=== PATIENT | male | born 1945 | race African-American/Black ===

== ENCOUNTER 2020-01-16 02:16 | Emergency (ER) | payer MEDICARE, MEDICAID, SELFPAY ==
--- NOTE | ~2020-01-16 | XR_ITS ---
EXAMINATION: XR G tube replacement w image DATE: 01/16/2020 03:13 INDICATION: G-tube placement TECHNIQUE: Portable AP supine view of the abdomen and pelvis was obtained following injection of 20 m L of Omnipaque 350 into the patient's existing percutaneous gastrostomy tube. COMPARISON: None. FINDINGS: Small amount of injected contrast in the stomach which outlines the inflated bulb of the percutaneous gastrostomy tube. Contrast extends into the normal caliber duodenum. No dilated gas-filled bowel to suggest obstruction. Scattered atherosclerotic calcifications along the aorta and bilateral renal and iliac arteries. A few small calcified nodules at the left lower lung zone consistent with old granul omatous disease. 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 IMPRESSION: 1. Cutaneous gastrostomy tube with inflated bulb in the stomach. Reviewed, dictated and finalized at location A.
[2020-01-16 02:18] VITALS: BP 95/59; PULSE 87; RESP 22; TEMP 36.3; O2SAT 100
--- NOTE | 2020-01-16 02:41 | ED.GENADULT ---
HPI - General Adult General Chief complaint: Unspecified Stated complaint: G TUBE PROBLEM Time Seen by Provider: 01/16/20 02:17 History of Present Illness HPI narrative: Patient is a 74-year-old male who presents the ER with having his G-tube out. Patient has history of stroke and requires feeding by NG tube. Unable to give any additional history due to previous CVA with aphasia. No tenderness to G-tube site. Related Data Allergies Allergy/AdvReac Type Severity Reaction Status Date / Time Penicillins Allergy Unknown Verified 09/28/17 07:27 Review of Systems Review of Systems: ROS unobtainable: Yes unobtainable due to medical condition [facility] Past Medical History Medical History (Updated 01/16/20 @ 03:00 by Leonid Pena MD) Alzheimers disease Amputated great toe of left foot Dysphagia Expressive aphasia GERD (gastroesophageal reflux disease) Hyperlipidemia Subarachnoid hemorrhage Type 2 diabetes mellitus Surgical History Surgical History (Updated 01/16/20 @ 02:46 by Leonid Pena MD) 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 HEAD: Normocephalic, atraumatic. ENT: Dry mucous membranes smoking of breathing. CHEST: Clear to auscultation. No respiratory distress. HEART: Regular rate and rhythm. Normal peripheral pulses. ABDOMEN: Soft, nontender, stoma site epigastric region without redness or bleeding.. NEURO: Awake and alert. Right hemiplegia. PSYCH: Normal mood and affect. Course Course Emergency Course: G-tube in place. Vital Signs Vital signs: Vital Signs Temperature 97.4 F L 01/16/20 02:18 Pulse Rate 87 01/16/20 02:18 Respiratory Rate 22 H 01/16/20 02:18 Blood Pressure 95/59 L 01/16/20 02:18 Pulse Oximetry 100 01/16/20 02:18 Temperature 97.4 F L 01/16/20 02:18 Pulse Rate 87 01/16/20 02:18 Respiratory Rate 22 H 01/16/20 02:18 Blood Pressure 95/59 L 01/16/20 02:18 Pulse Oximetry 100 01/16/20 02:18 Procedures Feeding Tube Replacement Feeding Tube #1: Feeding Tube Placement Date: 01/16/20 Feeding Tube Placement Time: 02:41 Type of Tube: gastrostomy Insertion Site Prior to Procedure: clean Tube Used for Reinsertion: other (kangaroo) Romansh Tube Size (F): 20 Balloon size (mL): 20 Verification of Placement: KUB and gastrografin injection Tube Secured by: tape/dressing Patient Tolerated Procedure: well and no complications Medical Decision Making Vital Signs Vital Signs: Vital Signs Temperature 97.4 F L 01/16/20 02:18 Pulse Rate 87 01/16/20 02:18 Respiratory Rate 22 H 01/16/20 02:18 Blood Pressure 95/59 L 01/16/20 02:18 Pulse Oximetry 100 01/16/20 02:18 Temperature 97.4 F L 01/16/20 02:18 Pulse Rate 87 01/16/20 02:18 Respiratory Rate 22 H 01/16/20 02:18 Blood Pressure 95/59 L 01/16/20 02:18 Pulse Oximetry 100 01/16/20 02:18 Imaging Data My impression: KUB: G tube in place Discharge Plan Discharge Clinical Impression: Complication of feeding tube Patient Disposition: NH Senior Care/Asst Living Condition: Stable Instructions: Tube Feeding (DC) Additional Instructions: Return to the ER if you have additional issues with your G-tube. Follow-up/Referrals: JAMIE ,BURT Baum MD [Primary Care Provider] - 1 Week
--- NOTE | 2020-01-16 02:51 | PC.NURSE ---
Pt presented to ED in soiled strong foul smelling gown and blanket, top and bottom. Pt given bath and entire bed changed by this nurse. Pt non verbal upon arrival, has very strong certified optician with left hand. Patients right arm is contracted but squeezes if you hold it. MD Webster reinserted new G-tube, pt tolerated well, awaiting Xray to check for placement at this time. This nurse called [facility] and spoke with nurse Cardona , she states she arrived to work at 2200 last night and noticed the G-tube was taken out during her midnight med pass. Pt is now resting in room will continue to monitor.
[2020-01-16 03:17] VITALS: BP 142/77; PULSE 82; RESP 18; O2SAT 97
== END 2020-01-16 03:19 ==
PROVIDERS: Emergency Provider Emergency Medicine; PCP Hospitalist
DX: Z43.1 Encounter for attention to gastrostomy (principal); I69.920 Aphasia following unspecified cerebrovascular disease; I69.991 Dysphagia following unspecified cerebrovascular disease; R13.10 Dysphagia, unspecified; G30.9 Alzheimer's disease, unspecified; F02.80 Dementia in other diseases classified elsewhere, unspecified severity, without behavioral disturbance, psychotic disturbance, mood disturbance, and anxiety; Z89.412 Acquired absence of left great toe; K21.9 Gastro-esophageal reflux disease without esophagitis; E78.5 Hyperlipidemia, unspecified; E11.9 Type 2 diabetes mellitus without complications; Z89.611 Acquired absence of right leg above knee; Z95.1 Presence of aortocoronary bypass graft
CPT/HCPCS: 49450; 99284